=== PATIENT | male | born 1995 | race Hispanic/Latino ===

== ENCOUNTER 2018-12-20 06:15 | Emergency (ER) | payer OTHER ==
[2018-12-20 06:28] VITALS: TEMP 97.4
[2018-12-20] MEDS ORDERED: Sodium Chloride 0.9% 1,000 ML IV STA (07:22)
--- NOTE | 2018-12-20 07:22 | ED PDOC ---
Arrival/HPI - General Chief Complaint: Male Genitourinary Time Seen by Provider: 12/20/18 07:19 Historian: Patient - History of Present Illness Narrative History of Present Illness (Text): 12/20/18 07:41 A 23 year old male, with no significant past medical history, presents to the emergency department with a complaint of left flank pain. The patient reports sudden onset of the pain this morning that began as intermittent cramping. He reports the pain currently radiates to his groin. Patient works in [place], but is originally from [place]. He denies fevers, chills, headache, dizziness, chest pain, shortness of breath, dyspnea on exertion, cough, nausea, vomiting, diarrhea, back pain, neck pain, urinary/bowel changes, or any other complaint. PMD: None Time/Duration: Other (This Morning) Symptom Onset: Sudden Symptom Course: Unchanged Activities at Onset: Rest, Light Context: Home, Work Past Medical History - Provider Review Nursing Documentation Reviewed: Yes - Genitourinary/Gynecological Hx Genitourinary Disorders: Yes Other/Comment: urethral stricture - Psychiatric Hx Substance Use: No Family/Social History - Physician Review Nursing Documentation Reviewed: Yes Family/Social History: No Known Family HX Smoking Status: Light Smoker < 10 Cigarettes Daily Hx Alcohol Use: Yes Frequency of alcohol use: Socially Hx Substance Use: No Allergies/Home Meds Allergies/Adverse Reactions: Allergies No Known Allergies Allergy (Verified 12/20/18 06:25) Review of Systems - Physician Review All systems were reviewed & negative as marked: Yes - Review of Systems Constitutional: absent: Fevers Respiratory: absent: SOB, Cough Cardiovascular: absent: Chest Pain, FINCH Gastrointestinal: Abdominal Pain. absent: Stool Changes, Diarrhea, Nausea, Vomiting Musculoskeletal: Back Pain (Left flank pain). absent: Neck Pain Neurological: absent: Headache, Dizziness Physical Exam Vital Signs Reviewed: Yes Vital Signs Temp Pulse Resp BP Pulse Ox 12/20/18 06:25 97.4 F L 79 18 140/88 98 Temperature: Hypothermic Blood Pressure: Normal Pulse: Regular Respiratory Rate: Normal Appearance: Positive for: Well-Appearing, Non-Toxic, Comfortable Pain Distress: None Mental Status: Positive for: Alert and Oriented X 3 - Systems Exam Head: Present: Atraumatic, Normocephalic Pupils: Present: PERRL Extroacular Muscles: Present: EOMI Conjunctiva: Present: Normal Mouth: Present: Moist Mucous Membranes Neck: Present: Normal Range of Motion Respiratory/Chest: Present: Clear to Auscultation, Good Air Exchange. No: Respiratory Distress, Accessory Muscle Use Cardiovascular: Present: Regular Rate and Rhythm, Normal S1, S2. No: Murmurs Abdomen: No: Tenderness, Distention, Peritoneal Signs Back: Present: CVA Tenderness (Left CVA tenderness) Upper Extremity: Present: Normal Inspection. No: Cyanosis, Edema Lower Extremity: Present: Normal Inspection. No: Edema Neurological: Present: GCS=15, CN II-XII Intact, Speech Normal Skin: Present: Warm, Dry, Normal Color. No: Rashes Psychiatric: Present: Alert, Oriented x 3, Normal Insight, Normal Concentration Medical Decision Making ED Course and Treatment: ro renal colic 12/20/18 07:47 Impression: A 23 year old male presents to the emergency department with a complaint of left flank pain radiating to the groin. Plan: -- Abdomen/Pelvis CT -- Urinalysis -- Toradol and IV Fluids -- Reassess and disposition Progress Notes: PROCEDURE: CT Abdomen and Pelvis without intravenous contrast Dictator : DR. Mcgraw, [place] [facility] Report Date : 12/20/2018 10:05:51 IMPRESSION: Punctate calculi in the left kidney with minimal prominence of the proximal left ureter and left renal pelvis. Punctate calculus measuring 1 millimeter in the left ureter along the pelvic brim. 12/20/18 21:44 labs neg no e/o of infection pain free i ner. ua neg for infection. stable for outpt management. strict return precautions advised. - Lab Interpretations I have reviewed the lab results: Yes - RAD Interpretation Radiology Orders: 12/20/18 07:22 ABD & PELVIS W/O PO OR IV CONT [CT] Stat - Scribe Statement The provider has reviewed the documentation as recorded by the Scribe Vonnie England Provider Scribe Attestation: All medical record entries made by the Scribe were at my direction and personally dictated by me. I have reviewed the chart and agree that the record accurately reflects my personal performance of the history, physical exam, medical decision making, and the department course for this patient. I have also personally directed, reviewed, and agree with the discharge instructions and disposition. Disposition/Present on Arrival - Present on Arrival Any Indicators Present on Arrival: No History of DVT/PE: No History of Uncontrolled Diabetes: No Urinary Catheter: No History of Decub. Ulcer: No History Surgical Site Infection Following: None - Disposition Have Diagnosis and Disposition been Completed?: Yes Diagnosis: Kidney stone Disposition: HOME/ ROUTINE Disposition Time: 10:00 Condition: STABLE Discharge Instructions (ExitCare): Kidney Stones in Adults Additional Instructions: follow up with specialist. return to er with any worsneing symptoms or concerns. Prescriptions: RX: Ibuprofen [Motrin Tab] 600 mg PO Q8 PRN #15 tab PRN Reason: Pain, Mild (1-3) Tamsulosin [Flomax] 0.4 mg PO DAILY #10 cap RX: traMADol [Ultram] 50 mg PO Q6 PRN #10 tab PRN Reason: Pain, Severe (8-10) Referrals: King Pierce MD [Staff Provider] - Follow up with primary Forms: [employer] (Serbian)
[2018-12-20 08:12] LABS: BASO # 0.04 K/mm3 (0.0-2.0); BASO % 0.5 % (0.0-3.0); EOS # 0.2 (0.0-0.7); EOS % 1.9 % (1.5-5.0); HEMOGLOBIN 14.5 g/dL (14.0-18.0); LYMPH # 1.9 (1.2-3.4); LYMPH % 22.3 % (22.0-35.0); MEAN CELL VOLUME 93.7 fl (80.0-105.0); MEAN CORPUSCULAR HEMOGLOBIN 31.3 pg (25.0-35.0); MEAN CORPUSCULAR HGB CONC 33.4 g/dl (31.0-37.0); MEAN PLATELET VOLUME 10.5 fl (7.0-11.0); MONO # 0.6 (0.1-0.6); MONO % 7.3 % (1.0-6.0); RBC 4.63 10^6/uL (3.5-6.1); WHITE BLOOD COUNT 8.6 10^3/uL (4.5-11.0)
[2018-12-20 08:24] LABS: ALB/GLOB RATIO 1.6 (1.1-1.8); ALBUMIN 4.5 g/dL (3.0-4.8); ALT/SGPT 71 U/L (7-56); AST/SGOT 42 U/L (17-59); BLOOD UREA NITROGEN 20 mg/dL (7-21); CALCIUM 9.3 mg/dL (8.4-10.5); GFR NON-AFRICAN AMERICAN > 60; INR 0.98; LIPASE 29 U/L (23-300); PROTHROMBIN TIME 11.1 SECONDS (9.4-12.5)
[2018-12-20 08:50] LABS: PH,URINE 5.5 (4.7-8.0); URINE BILIRUBIN NEGATIVE (NEGATIVE); URINE BLOOD LARGE (NEGATIVE); URINE GLUCOSE (UA) NEGATIVE (NEGATIVE); URINE LEUKOCYTE ESTERASE NEGATIVE Leu/uL (NEGATIVE); URINE PROTEIN 30 mg/dL (<30 mg/dL); URINE UROBILINOGEN 0.2 E.U./dL (<1 E.U./dL)
[2018-12-20 08:51] LABS: URINE APPEARANCE CLEAR (CLEAR); URINE COLOR YELLOW (YELLOW)
[2018-12-20 08:57] LABS: URINE BACTERIA MANY /hpf; URINE RBC TNTC /hpf (0-2)
[2018-12-20 09:12] VITALS: O2SAT 99
--- NOTE | 2018-12-20 10:09 | CT ---
Date of service: 12/20/2018 PROCEDURE: CT Abdomen and Pelvis without intravenous contrast HISTORY: left flank pain COMPARISON: None. TECHNIQUE: Technique. Contrast dose: Radiation dose: Total exam DLP = 1664.01 mGy-cm. This CT exam was performed using one or more of the following dose reduction techniques: Automated exposure control, adjustment of the mA and/or kV according to patient size, and/or use of iterative reconstruction technique. FINDINGS: LOWER THORAX: Unremarkable. LIVER: Unremarkable. No gross lesion or ductal dilatation. GALLBLADDER AND BILE DUCTS: Unremarkable. PANCREAS: Unremarkable. No gross lesion or ductal dilatation. SPLEEN: Unremarkable. ADRENALS: Unremarkable. No mass. KIDNEYS AND URETERS: Punctate calculi in the left kidney with minimal prominence of the proximal left ureter and left renal pelvis. Punctate calculus measuring 1 millimeter in the left ureter along the pelvic brim. VASCULATURE: Unremarkable. No aortic aneurysm. No aortic atherosclerotic calcification or mural plaque present. BOWEL: Unremarkable. No obstruction. No gross mural thickening. APPENDIX: Unremarkable. Normal appendix. PERITONEUM: Unremarkable. No free fluid. No free air. LYMPH NODES: Unremarkable. No enlarged lymph nodes. BLADDER: Unremarkable. REPRODUCTIVE: Unremarkable. BONES: No acute fracture. OTHER FINDINGS: None. IMPRESSION: Punctate calculi in the left kidney with minimal prominence of the proximal left ureter and left renal pelvis. Punctate calculus measuring 1 millimeter in the left ureter along the pelvic brim.
[2018-12-20 10:54] VITALS: BP 130/71; PULSE 70; RESP 17
== END 2018-12-20 10:52 | disposition home or self-care (01) ==
LOC: ED 06:15
DX: N20.0 Calculus of kidney (principal); F17.210 Nicotine dependence, cigarettes, uncomplicated
CPT/HCPCS: 74176; 80053; 81001; 83690; 83735; 85025; 85610; 85730; 96361; 96374; 99284; J1885; J7030